=== PATIENT | male | born 1985 | race Hispanic/Latino ===

== ENCOUNTER 2025-04-30 09:25 | Day surgery (SDC) | payer BC ==
[2025-04-26 13:40] LABS: Absolute Lymphocytes (CBC) 3.2 K/uL (0.7-4.9); Hematocrit 42.7 % (39.6-49.0); Hemoglobin 14.2 g/dL (13.6-17.9); MCH 27.1 pg (27.0-35.0); MCHC 33.1 g/dL (32.0-36.0); MCV 81.9 fL (80-100); MPV 8.0 fL (7.6-11.3); Nucleated RBC Absolute Count 0.0 (0-0); Nucleated Red Blood Cells % 0.1 % (0-0); RBC Red Blood Cell Count 5.21 M/uL (4.33-5.43); White Blood Count 8.10 thou/uL (4.3-10.9)
[2025-04-26 13:42] LABS: Urine Culture Reflex Order REFLEXED; Urine Microscopic Reflex YN NO UMIC
[2025-04-26 13:47] LABS: PT Prothrombin Time 11.4 SECONDS (10-13.0); Protime INR 1.01
[2025-04-26 13:59] LABS: Anion Gap 7.0 mEq/L (5.0-15.0); BUN Blood Urea Nitrogen 13.0 mg/dL (7-18); Glucose Level 96.0 mg/dL (74-106); Potassium 4.0 mEq/L (3.5-5.1)
--- NOTE | 2025-04-26 16:25 | RAD REPORT ---
Procedure: Chest Pa And Lat (2 Views) HISTORY: Preop. Hypertension COMPARISON: none FINDINGS: The lungs appear clear of acute infiltrate. No significant pleural effusion noted. The heart is normal size. IMPRESSION: No acute abnormality is displayed.
[2025-04-30] MEDS ORDERED: ONDANSETRON 4 MG/2 ML VIAL ONE (09:30)
[2025-04-30] MEDS ORDERED: MIDAZOLAM HCL 2 MG/2 ML INJ ONE (09:30)
[2025-04-30] MEDS ORDERED: LIDOCAINE 2% MPF 5 ML VIAL ONE (09:30)
[2025-04-30] MEDS ORDERED: FENTANYL CITR 100 MCG/2 ML ONE (09:30)
[2025-04-30] MEDS: Ringers Lactate 1,000 ML IV ONE (09:36)
[2025-04-30] MEDS: SCOPOLAMINE HYDROBROMIDE PATCH TD ONE (09:39)
[2025-04-30] MEDS: CEFAZOLIN SODIUM 2 GM/VIAL ONE (10:16)
[2025-04-30] MEDS: BUPIVACAINE 0.5% PF 10 ML VIAL ONE (10:28)
[2025-04-30] MEDS ORDERED: GLYCOPYRROLATE 0.2 MG/ML SYR ONE (10:37)
[2025-04-30] MEDS ORDERED: KETOROLAC 30 MG/ML INJ ONE (11:02)
[2025-04-30] MEDS: BACITRACIN OINTMENT 14 GM TUBE TOP ONE (11:05)
[2025-04-30] MEDS: HYDROMORPHONE HCL 1 MG/ML INJ ONE (11:34)
[2025-04-30] MEDS ORDERED: HYDROCODONE/APAP 5/325 MG TAB PO PRN (11:56)
[2025-04-30 14:00] VITALS: BP 125/70; TEMP 98.7; O2SAT 97
--- NOTE | 2025-04-30 16:39 | P.OP ---
Date of Service: 04/30/25 Preoperative diagnoses: Right hemiscrotal pain h/o vasectomy in 2021 Sperm granuloma Postoperative diagnoses: Right hemiscrotal pain h/o vasectomy in 2021 Sperm granuloma Principal procedures: Right hemiscrotal exploration and excision of foreign bodies and sperm granuloma Indications for procedure: 39-year-old gentleman who underwent vasectomy that was largely uncomplicated, but postoperatively, he explained he was having a degree of scrotal/testicular pain. Subsequent evaluation including an ultrasound did suggest the presence of a sperm granuloma and the patient had pinpoint tenderness in the region of the granulomatous change within the right hemiscrotum. As a result, he was counseled that when operating for pain, 1 can never be certain that correcting an abnormality seen will resolve the pain, but at this point, enough time had elapsed that it was reasonable to proceed. We would not want him to continue with moderate to severe pain intermittently for the rest of his life. Procedure note: The patient was consented in the preoperative holding area before being transferred to the operative suite where general anesthesia was induced. He was given Ancef 2 g IV antimicrobial prophylaxis, and pneumoboots were provided for DVT prophylaxis. He was placed supine on the procedure table, padded and secured appropriately. His genitalia was shaved while being prepped with Betadine and draped in standard fashion. I then identified the tender granulomatous spot in the right hemiscrotum in the superior aspect of the right hemiscrotum, and I injected half percent Marcaine within a Radames's line incision approximately 1 to 1.5 cm in length made with a 15 blade. I then utilized electrocautery to deepen through the dartos layers and ultimately to divide the tunica vaginalis to enter the scrotal sac. I was then able to reach through the opening and grasped and bring up beneath the skin and the nodular tissue previously palpated in the region of tenderness. I used a [place] clamp to elevate that tissue and the portion of the cord structures associated through the incision into the opening. I then placed a [place] drain beneath the affected area. I then began dissecting the reactive scar tissue around the nodular tissue, which was somewhat yellowish in appearance consistent with granulomatous change. While the scar tissue, identified that this was associated with the ends of the vas deferens, which were clipped with metal clips proximally and distally, and these were embedded within the scar tissue change. I thus the proximal end of the vas from the cord structure and to removed the metal clip and affected 0.5 to 1 cm and of that proximal vas deference. I then utilized 3-0 silk to hand tie the cut end of the vas deferens to seal it. I then similarly the distal end of the cut vas deferens and its associated metal clip from the epididymis distally, and then removed and approximately 0.7 to 0.8 cm granulomatous tissue change involving that proximal cut end of the vas deferens. Once I this from the remaining vas deferens, I then utilized the silk suture to tie off the distal end of the vas deferens as well. The granulomatous tissue was sent for pathologic analysis along with the 2 metal clips from each end of the cut vas deference. I then surveyed the entirety of the cord structures by digital palpation and brought the testicle to the scrotal opening in order to visualize this, and no additional pathologic abnormalities were noted. I thus returned the cord structures back into the right hemiscrotum, and I utilized 3-0 Vicryl suture to reapproximate the tunica vaginalis and dartos layers beneath the skin. I then utilized 3-0 chromic to reapproximate the skin edges in a running hemostatic fashion. Bacitracin was applied to the incision site and the Betadine was cleansed from the skin. A scrotal support was provided, and the patient was awakened from general anesthesia. He was then transferred to a stretcher before being transferred to the recovery room in good condition. Complications: None Discharge disposition: Subsequent follow-up should be established within the next few weeks interval assessment of his ongoing pain.
== END 2025-04-30 12:55 | disposition home or self-care (01) ==
LOC: OR 09:25
PROVIDERS: ATTEND Urology
PROC: 0WJG0ZZ Inspection of Peritoneal Cavity, Open Approach (ICD-10-PCS; 2025-04-30)
PROC: 0HB9XZZ Excision of Perineum Skin, External Approach (ICD-10-PCS; principal; 2025-04-30 10:30)
DX: N50.819 Testicular pain, unspecified (principal); N50.89 Other specified disorders of the male genital organs
CPT/HCPCS: 93005; 87088; 85025; 87086; 80048; 36415; 85610; 88304; 81003; 71046; 54830; 55110; J2704; J2003; J2250; J3010; J1100; J1171; J2405; J7120; 88305